=== PATIENT | male | born 1990 | race Caucasian/White ===

== ENCOUNTER 2021-06-18 13:24 | Emergency (ER) | payer BC, SELFPAY ==
--- NOTE | ~2021-06-18 | CT_ITS ---
EXAMINATION: CT abdomen pelvis w con DATE: 06/18/2021 18:56 INDICATION: Right lower quadrant abdominal pain. TECHNIQUE: Computed tomography (CT) of the abdomen and pelvis was performed with 100 mL Omnipaque 350 intravenous contrast. Automated exposure control and iterative reconstruction technique were employe d. The dose-length product was 1342.02 mGy-cm. COMPARISON: CT abdomen and pelvis 10/12/2009 FINDINGS: The visualized portions of the lung bases demonstrate minimal atelectasis on the right. No pleural effusion. The heart size is normal. No pericardial effusion. The liver, gallbladder, spleen, pancreas, adrenal glands, and right kidney are normal. There is a 9 mm cyst in left kidney. There are two 2 mm stones in left kidney. There are no dilated loops of bowel. The appendix is normal. There a re no pathologically enlarged lymph nodes. There is no free intraperitoneal fluid. There is mild thor acolumbar spondylosis. IMPRESSION: 1. No etiology for the patient's symptoms. Reviewed, dictated and finalized at location A. ASSESSOR
[2021-06-18 13:29] VITALS: BP 145/85; PULSE 92; RESP 16; TEMP 36.3; O2SAT 99
[2021-06-18 17:36] VITALS: BP 137/87; PULSE 89; RESP 20; TEMP 36.1; O2SAT 99
[2021-06-18 17:52] LABS: Basophils Percent Auto 0.2 % (0.2-1.2); Eosinophils Absolute Auto 0.1 K/mm3 (0-0.3); Eosinophils Percent Auto 1.4 % (0-4.4); Hematocrit 48.6 % (42.0-52.0); Hemoglobin 16.9 g/dL (14.0-18.0); Immature Granulocyte Absolute 0.02 K/mm3 (0.00-0.031); Immature Granulocyte Percent A 0.2 % (0-0.5); Lymphocytes Absolute Auto 2.51 K/mm3 (0.9-3.2); Lymphocytes Percent Auto 24.8 % (18.3-44.2); Mean Corpuscular HGB Conc 34.8 g/dl (32-36); Mean Corpuscular Hemoglobin 30.8 pg (26-34); Mean Corpuscular Volume 88.7 fl (80-100); Mean Platelet Volume 9.5 fl (7.4-10.4); Monocytes Absolute Auto 0.8 K/mm3 (0.1-0.6); Monocytes Percent Auto 7.8 % (2.6-8.5); Neutrophils Absolute Auto 6.7 K/mm3 (1.3-6.7); Neutrophils Percent Auto 65.6 % (45.5-73.1); Platelet Count Result 227 k/mm3 (150-375); Red Blood Count 5.48 M/mm3 (4.6-6.20); Red Cell Distribution Width 12.1 % (11.5-14.5); White Blood Count 10.1 K/mm3 (4.5-10.0)
[2021-06-18 17:55] LABS: Add Urine Microscopic? NO; Appearance Urine Clear (Clear); Bilirubin Urine Negative (Negative); Blood Urine Negative (Negative); Color Urine Yellow (Yellow); Glucose Urine UA Negative (Negative); Ketones Urine Negative (Negative); Leukocyte Esterase Ur Negative LEU/UL (Negative); Nitrate Urine Negative (Negative); Protein Urine Negative (Negative); Specific Grav Ur 1.018 (1.001-1.035); Urobilinogen Urine Negative mg/dL (<2.0)
[2021-06-18 18:33] LABS: Alanine Aminotransferase 131 U/L (4-50); Albumin Level 4.6 g/dL (3.5-5.1); Alkaline Phosphatase 71 U/L (38-126); Anion Gap 12 mmol/L (8-16); Aspartate Amino Transferase 77 U/L (17-59); Bilirubin,Total 0.6 mg/dL (0.2-1.3); Blood Urea Nitrogen 14 mg/dL (9-20); Calcium 9.4 mg/dL (8.4-10.2); Carbon Dioxide 22 mmol/L (22-30); Chloride 104 mmol/L (98-107); Estimated CRCL calculation 131 ml/min; Estimated Glomerular Filt Rate > 60; Glucose 98 mg/dL (65-110); Lipase 141 U/L (23-300); Potassium 4.2 mmol/L (3.4-5.0); Sodium 138 mmol/L (137-145)
[2021-06-18] MEDS: LACTATED RINGERS 1,000 ML 999 ML IV CONT (18:35)
[2021-06-18] MEDS: ONDANSETRON INJ 4 MG/2 ML VIAL IV PUSH (18:36)
[2021-06-18] MEDS: KETOROLAC 30 MG/ML VIAL (*BKC) IV PUSH (18:36)
--- NOTE | 2021-06-18 19:40 | ED.ABDPAIN ---
HPI - Abdominal Pain General Chief Complaint: Abdominal Pain Stated Complaint: abdominal pain N/V/D Time Seen by Provider: 06/18/21 17:39 History of Present Illness HPI narrative: Patient is a 30-year-old male otherwise healthy who comes to the ED today complaining of lower abdominal pain with nausea vomiting and diarrhea. Symptoms started 5 days ago he describes the pain as cramping in nature. Seems to get better after bowel movement. There is no urinary symptoms. Has felt feverish at times. Max temperature at home of 99. He admits to previous history of similar symptoms due to food poisoning but this was in the distant past and typically would not last this long. He rarely uses alcohol. Denies any marijuana use or illicit drug use. He still has his appendix. Has not had COVID-19 that he knows of. Admits to exposure to COVID-19. Related Data Allergies Allergy/AdvReac Type Severity Reaction Status Date / Time No Known Allergies Allergy Verified 06/18/21 17:39 Review of Systems Constitutional: Constitutional: Reports as per HPI, Denies fever(s), Denies night sweats and Denies weakness Cardiovascular: Cardiovascular: Denies chest pain, Denies edema, Denies leg edema, Denies dyspnea and Denies orthopnea Respiratory: Respiratory: Denies cough and Denies dyspnea Gastrointestinal: Gastrointestinal: Reports abdominal pain, Denies constipation, Reports diarrhea, Reports nausea and Reports vomiting Genitourinary: Genitourinary: Reports no additional male genitourinary complaints Musculoskeletal: Musculoskeletal: Denies abnormal gait, Denies back pain, Denies numbness and Denies tingling Neurologic: Denies Abnormal speech present, Denies abnormal gait, Denies numbness, Denies tingling and Denies weakness Psychiatric: Psychiatric: Denies homicidal ideation and Denies suicidal ideation Exam Const: General: cooperative, healthy appearing, comfortable, no acute distress, well developed, alert, awake and Physically active Orientation/consciousness: patient oriented x3 HENMT: Head: normal to inspection, normocephalic and atraumatic Ears: external ears normal General nose exam: Normal external nose present Eyes: Pupils: Equal, round and reactive pupils present EOM: EOMs intact bilaterally Neck: Neck: normal visual inspection Chest: Chest palpation & inspection: normal inspection of the chest and no tenderness Resp: Effort & Inspection: normal respiratory effort and able to speak in complete sentences Auscultation: clear to auscultation bilaterally Cardio: Rate: regular rate Rhythm: regular rhythm GI: Inspection: normal to inspection GI Palp: Yes abdominal tenderness Other: Tender to palpate over right lower quadrant, suprapubic and left lower quadrant. Soft. No rebound. Not distended. : General: Yes no CVA tenderness Back/Spine/Pelvis: Back: no CVA tenderness Skin: General skin exam: normal color and no rashes or lesions noted Lesions: no lesions Neuro: General: patient oriented x3, no focal motor deficits and CN's II-XI intact bilaterally Cranial nerves: Yes Equal, round and reactive pupils present Speech: No Abnormal speech present Extrem: General: normal to inspection and full ROM Psych: Appearance: grossly normal and well kempt Mental Status: mental status grossly normal Speech and movement: Normal speech and movement present Affect: normal affect Thought process: Normal thought process present Course Course Emergency Course: 7:40 PM Rechecked patient. He is feeling a lot better. Requesting to be discharged. Discussed reassuring work-up. Discussed plan for discharge with supportive care. Return with any worsening symptoms. Will check for COVID-19. Vital Signs Vital signs: Vital Signs Temperature 36.3 C L 06/18/21 13:29 Pulse Rate 92 06/18/21 13:29 Respiratory Rate 16 06/18/21 13:29 Blood Pressure 145/85 H 06/18/21 13:29 Pulse Oximetry 99 06/18/21 13:29 Temperature 3
--- NOTE | 2021-06-18 20:03 | PC.NURSE ---
Per pt, he had a COVID test on Friday and doesn't need another one.
== END 2021-06-18 20:03 | disposition home or self-care (01) ==
PROVIDERS: Physician Assistant Medical; Emergency Provider Family Medicine; PCP Family Medicine Adolescent Medicine
DX: R10.30 Lower abdominal pain, unspecified (principal); R11.10 Vomiting, unspecified; R19.7 Diarrhea, unspecified
CPT/HCPCS: 36415; 74177; 80053; 81003; 83690; 85025; 96361; 96374; 96375; 99284; J1885; J2405; J7120; Q9967

== ENCOUNTER 2024-11-19 10:18 | Emergency (ER) | payer OTHER, SELFPAY ==
[2024-11-19] VITALS (7 sets, daily range): BP systolic 125–141; BP diastolic 72–82; PULSE 58–63; RESP 13–19; TEMP 36.4; O2SAT 97–99
--- NOTE | ~2024-11-19 | XR_ITS ---
Clinical Indication: Chest pain PA and lateral views of the chest: Comparison: None Findings: The lungs are clear, without evidence of focal consolidation or pleural effusion. Cardiome diastinal silhouette is within normal limits. Bones and soft tissues are unremarkable. Impression: Normal chest. Reviewed, dictated and finalized at location . Impression: Normal chest.
--- NOTE | 2024-11-19 10:19 | ECG_ITS ---
Test Date: 2024-11-19 10:23:32 Measurements Intervals [place] Rate: 64 P: 8 CO: 140 QRS: 40 QRSD: 102 T: 35 QT: 367 QTc: 379 Interpretive Statements SINUS RHYTHM BASELINE ARTIFACT- I, III, AVR, AVL, V4-V6 NORMAL ECG No previous ECG available for comparison Electronically Signed On 11-19-2024 10:47:56 CDT by Pedrito Colindres D.O.
[2024-11-19 10:34] LABS: Basophils Percent Auto 0.9 % (0.2-1.2); Eosinophils Absolute Auto 0.1 K/mm3 (0-0.3); Eosinophils Percent Auto 1.9 % (0-4.4); Hematocrit 45.3 % (42.0-52.0); Hemoglobin 15.3 g/dL (14.0-18.0); Immature Granulocyte Absolute 0.01 K/mm3 (0.00-0.031); Immature Granulocyte Percent A 0.2 % (0-0.5); Lymphocytes Percent Auto 42.6 % (18.3-44.2); Mean Corpuscular HGB Conc 33.8 g/dl (32-36); Mean Corpuscular Hemoglobin 30.1 pg (26-34); Mean Platelet Volume 10.2 fl (7.4-10.4); Monocytes Absolute Auto 0.4 K/mm3 (0.1-0.6); Monocytes Percent Auto 8.1 % (2.6-8.5); Neutrophils Absolute Auto 2.2 K/mm3 (1.3-6.7); Neutrophils Percent Auto 46.3 % (45.5-73.1); Platelet Count Result 186 k/mm3 (150-375); Red Blood Count 5.09 M/mm3 (4.6-6.20); Red Cell Distribution Width 12.6 % (11.5-14.5); White Blood Count 4.7 K/mm3 (4.5-10.0)
[2024-11-19 10:52] LABS: Partial Thromboplastin Time 24.5 Seconds (22.3-36.8); Prothrombin Time 12.9 Seconds (11.1-14.7)
[2024-11-19 11:08] LABS: Troponin I < 0.012 ng/mL (0.000-0.034)
[2024-11-19 11:19] LABS: Alanine Aminotransferase 71 U/L (6-50); Albumin Level 4.5 g/dL (3.5-5.1); Alkaline Phosphatase 58 U/L (38-126); Anion Gap 11 mmol/L (4-12); Aspartate Amino Transferase 45 U/L (17-59); Bilirubin,Total 0.5 mg/dL (0.2-1.3); Blood Urea Nitrogen 15 mg/dL (9-20); Calcium 9.1 mg/dL (8.4-10.2); Carbon Dioxide 22 mmol/L (22-30); Chloride 105 mmol/L (98-107); Estimated CRCL calculation 133 ml/min; Estimated Glomerular Filt Rate > 60; Glucose 100 mg/dL (65-110); Lipase 181 U/L (23-300); Potassium 4.7 mmol/L (3.4-5.0); Sodium 138 mmol/L (137-145); Total Protein 7.3 g/dL (6.3-8.2)
--- NOTE | 2024-11-19 13:42 | ED_ITS ---
HPI - Chest Pain General Chief Complaint: Chest Pain Stated Complaint: CP x 1 week Time Seen by Provider: 11/19/24 11:44 History of Present Illness HPI narrative: Patient and his decided to start eating healthier and getting more fit and have been working out the last 3 weeks, however about a week ago he started feeling soreness around his chest, also to his arms and legs, he states that there is a family history of lung cancer though they have all been smokers so he became concerned that maybe lung cancer or heart problems. No symptoms currently. Related Data Allergies Allergy/AdvReac Type Severity Reaction Status Date / Time No Known Allergies Allergy Verified 11/19/24 11:56 Review of Systems 2 Review of Systems: All systems reviewed & are unremarkable except as noted in HPI and below Exam 2 Narrative: EXAMINATION OF ORGAN SYSTEMS/BODY AREAS: Constitutional: Vital signs per nursing GENERAL:[No acute distress, non-toxic appearing.] HEAD: Normal with no signs of head trauma. EYES: EOMI, conjunctiva normal ENT: Hearing grossly intact LUNGS: Nonlabored breathing. Clear to auscultation bilaterally. HEART: [Regular rate and rhythm], normal radial and DP pulses ABD: [Soft], [nontender to palpation] EXT: Normal range of motion SKIN: [No rashes or lesions.] NEURO: [Alert and oriented x 3. No gross focal sensory or strength deficits.] PSYCH: Normal affect Course Vital Signs Vital signs: Vital Signs Temperature 97.5 F L 11/19/24 10:21 Pulse Rate 58 L 11/19/24 10:21 Respiratory Rate 18 11/19/24 10:21 Blood Pressure 141/81 H 11/19/24 10:21 Pulse Oximetry 99 11/19/24 10:21 Temperature 97.5 F L 11/19/24 10:21 Pulse Rate 63 11/19/24 11:31 Respiratory Rate 18 11/19/24 11:31 Blood Pressure 125/72 11/19/24 11:31 Pulse Oximetry 98 11/19/24 11:50 Oxygen Delivery Room Air 11/19/24 11:50 MDM - Chest Pain MDM Narrative Medical decision making narrative: Patient presents here with concern for new body pain everywhere, especially to his left chest, ongoing for a week, worse with coughing, nothing presently while lying here. On exam he is extremely well appearing, in no distress, lying comfortably in the bed, low lung sounds normal, normal range of motion and no neurologic deficits on my exam, speaking with clear speech. Ambulating normal gait. Cardiac workup here completely benign at with normal labs and negative troponin, EKG - 12-Lead: Performed at 1023. Interpreted by me. [Sinus rhythm]. Rate 64. [Normal] axis. NM-interval [normal]. QRS duration [normal]. QTc [normal]. [No ST segment elevation or depression]. [T-wave normal]. Impression: No EKG evidence of acute ischemia or dysrhythmia. Chest x-ray on my independent interpretation does not show any obvious abnormality, pneumothorax or consolidation. Patient is reassured. I did let him know that given his concerns he can follow up with primary care doctor for further testing including for diabetes and cholesterol and heart disease. Patient agreeable to this plan with return precautions. Lab Data 11/19/24 10:27 11/19/24 10:27 Labs: Lab Results 11/19/24 Range/Units 10:27 WBC 4.7 (4.5-10.0) K/mm3 RBC 5.09 (4.6-6.20) M/mm3 Hgb 15.3 (14.0-18.0) g/dL Hct 45.3 (42.0-52.0) % MCV 89.0 (80-100) fl MCH 30.1 (26-34) pg MCHC 33.8 (32-36) g/dl RDW 12.6 (11.5-14.5) % Plt Count 186 (150-375) k/mm3 MPV 10.2 (7.4-10.4) fl Immature Gran % (Auto) 0.2 (0-0.5) % Neut % (Auto) 46.3 (45.5-73.1) % Lymph % (Auto) 42.6 (18.3-44.2) % [place] % (Auto) 8.1 (2.6-8.5) % Eos % (Auto) 1.9 (0-4.4) % Baso % (Auto) 0.9 (0.2-1.2) % Lymph # (Auto) 2.00 (0.9-3.2) K/mm3 [place] # (Auto) 0.4 (0.1-0.6) K/mm3 Eos # (Auto) 0.1 (0-0.3) K/mm3 Baso # (Auto) 0.0 (0.0-0.1) K/mm3 Abs Immat Gran (auto) 0.01 (0.00-0.031) K/mm3 Absolute Neuts (auto) 2.2 (1.3-6.7) K/mm3 Absolute Nucleated RBC 0.000 (0.0-0.012) K/mm3 Nucleated RBC % 0.0 (0.0-0.2) % PT 12.9 (11.1-14.7) Seconds INR 1.0 APTT 24.5 (22.3-36.8) Seconds Sodium 138 (137-145) mmol/L Potassium 4.7 (3.4-5.0) mmol/L Chloride 105 (98-107) mmol/L Carbon Dioxide 22 (22-30) mmol/L Anion Gap 11 (4-12) mmol/L BUN 15 (9-20) mg/dL Creatinine 1.01 (0.7-1.3) mg/dL Estim Creat Clear Calc 133 ml/min Estimated GFR > 60 (59 - ) Glucose 100 (65-110) mg/dL Calcium 9.1 (8.4-10.2) mg/dL Total Bilirubin 0.5 (0.2-1.3) mg/dL AST 45 (17-59) U/L ALT 71 H (6-50) U/L Alkaline Phosphatase 58 (38-126) U/L Troponin I < 0.012 (0.000-0.034) ng/mL Total Protein 7.3 (6.3-8.2) g/dL Albumin 4.5 (3.5-5.1) g/dL Lipase 181 (23-300) U/L Discharge Plan Discharge Clinical Impression: Atypical chest pain Patient Disposition: Home Condition: Stable Instructions: Chest Pain (ED) Additional Instructions: Please follow up with a primary care doctor; you can always return for any further issues. Patient Language: Korean Prescriptions: No Action ondansetron 4 mg tablet,disintegrating 4 mg PO Q6H PRN (Reason: nausea and vomiting) Qty: 10 0RF loperamide [Anti-Diarrheal (loperamide)] 2 mg tablet 2 mg PO Q6H PRN (Reason: loose stool) Qty: 14 0RF Follow-up/Referrals: Mallory Tapia DO [Physician] - 2 Days Sp Draper MD [Primary Care Provider] -
== END 2024-11-19 12:12 | disposition home or self-care (01) ==
LOC: ANHED 12:06
PROVIDERS: Emergency Provider Emergency Medicine; PCP Family Medicine Adolescent Medicine
DX: R07.89 Other chest pain (principal); Z80.1 Family history of malignant neoplasm of trachea, bronchus and lung
CPT/HCPCS: 36415; 71046; 80053; 83690; 84484; 85025; 85610; 85730; 93005; 99284